=== PATIENT | male | born 1950 | race Two or more races ===

== ENCOUNTER 2016-07-26 17:41 | Emergency (ER) | payer BC ==
[2016-07-26 17:53] VITALS: BP 145/80
[2016-07-26] MEDS ORDERED: Fluorescein Sodium TOPICAL* 1 MG TEST ONE (18:38)
[2016-07-26] MEDS ORDERED: BSS OPTH.SOL* BTL ONE (18:38)
[2016-07-26] MEDS ORDERED: Proparacaine 0.5% OPHTH.SOL* 15 ML BTL ONE (18:38)
[2016-07-26] MEDS ORDERED: Tobramycin 0.3% OPHTH.SOL* 5 ML BOT (regular eye drops) LEFT EYE ONE ×2 (19:12→19:14)
--- NOTE | 2016-07-27 00:08 | UC ---
Nanette Collado Erika, scribed for Tamia Baldwin MD on 07/26/16 at 1845 . Eye Complaint HPI - HPI Summary HPI Summary: Patient is a 66-year-old male presenting to [facility] with a CC of left eye pain s/p injury. Pt reports that at 15:30, he pushed back some branches, and a branch whipped back and hit his eye. He states eye was instantly painful and he instantly had blurred vision. He also saw a "streaky halo when looking at bright lights" in his visual field - pt reports that this somewhat reminds him of his cataracts. He further describes this as a "little refraction down toward the lower left of the visual field." Associated symptoms include photophobia. Pt denies bleeding from the eye. Pt then took a nap, and then came to [facility]. Hx cataracts surgery in 2013 in the affected eye. FHx glaucoma. Pt believes he is UTD on tetanus. - History of Current Complaint Chief Complaint: UCEye Stated Complaint: EYE COMPLAINT Time Seen by Provider: 07/26/16 18:35 Hx Obtained From: Patient Onset/Duration: Sudden Onset, Lasting Hours, Still Present Timing: Constant Severity Currently: Moderate Pain Intensity: 6 Pain Scale Used: 0-10 Numeric Character: Sharp Aggravating Factor(s): Light Associated Signs And Symptoms: Positive: Photophobia, Vision Impairment Left - Allergies/Home Medications Allergies/Adverse Reactions: Allergies Allergy/AdvReac Type Severity Reaction Status Date / Time Penicillins [PCN] Allergy Hives Verified 07/25/15 12:28 PMH/Surg Hx/FS Hx/Imm Hx Endocrine History Of: Denies: Diabetes, Thyroid Disease Cardiovascular History Of: Denies: Cardiac Disorders, Hypertension Respiratory History Of: Denies: COPD, Asthma GI/ History Of: Denies: Ulcer - Surgical History Surgical History: Yes Surgery Procedure, Year, and Place: 2013 [place]YE [place] [facility] [facility] [place] [facility] [place] [place] RIGHT KNEE PATELLA REPAIR, BILL (45 YEARS AGO). RIGHT INGUINAL HERNIA REPAIR , BILL - Family History Known Family History: Positive: Other - glaucoma - Social History Lives: With Family Alcohol Use: Daily Alcohol Amount: 1 beer, 1 wine (NO MORE THAN 2) Substance Use Type: None Smoking Status (MU): Never Smoked Tobacco Have You Smoked in the Last Year: No - Immunization History Most Recent Influenza Vaccination: Most Recent Tetanus Shot: In the last 10 years Review of Systems Constitutional: Negative Eyes: Blurred Vision - left, Photophobia - left, Other - Streak in vision All Other Systems Reviewed And Are Negative: Yes Physical Exam Triage Information Reviewed: Yes Appearance: Well-Appearing, Well-Nourished, Pain Distress - mild Vital Signs: Initial Vital Signs Temp 97.1 F 07/26/16 17:47 Pulse 75 07/26/16 17:47 Resp 16 07/26/16 17:47 BP 145/80 07/26/16 17:47 Pulse Ox 100 07/26/16 17:47 Vital Signs Reviewed: Yes Eye Exam: Other - See procedure note ENT: Positive: Normal ENT inspection Neck: Positive: Supple Respiratory: Positive: No respiratory distress Cardiovascular: Positive: RRR, Pulses Normal, Brisk Capillary Refill Musculoskeletal: Positive: Strength Intact, ROM Intact Neurological: Positive: Alert, Muscle Tone Normal Psychological Exam: Normal Skin Exam: Normal Procedures - Procedure Summary Procedure Summary: Proparacaine drops and fluorescein stain administered to the left eye. Patient reports pain immediately decreased to a 0/10 following administration of the proparacaine. Used Wood's Lamp to view left eye. 2 mm corneal abrasion visualized from 1 o'clock towards 7 o'clock. Negative hyphema. CRISPIN. Re-Evaluation - Re-Evaluation First Eval Re-Evaluation Time: 19:23 Comment: Discussed Dr. Ward's recommendations and follow up care Eye Complaint Course/Dx - Differential Dx/Diagnosis Differential Diagnosis/HQI/PQRI: Corneal Abrasion, Detached Retina, Glaucoma, Penetrating Injury Provider Diagnoses: 1. Corneal abrasion - Physician Notification/Consults Discussed Patient Care With: Called out to Dr. Ward (ophthalmology) at 19: 00. Return call from Dr. Ward at 19:08 - discussed history and plan of care. Will see patient at 09:00 tomorrow in the office. Recommends tobramycin and eye rest. Instructed by Provider To: Other - will see in office at 0900 tomorrow. Discharge - Discharge Plan Condition: Stable Disposition: HOME Patient Education Materials: Corneal Abrasion (ED) Referrals: Leslie Newell MD [Primary Care Provider] - Justice Ward MD [Medical Doctor] - Additional Instructions: You have a follow up appointment at 9:00 am tomorrow at [facility]. Rest the eye. RETURN TO URGENT CARE FOR ANY NEW OR WORSENING SYMPTOMS. The documentation as recorded by the Nanette hunt Erika accurately reflects the service I personally performed and the decisions made by me, Tamia Baldwin MD.
== END 2016-07-26 19:46 | disposition home or self-care (01) ==
LOC: UCEAST 17:41
DX: S05.02XA Injury of conjunctiva and corneal abrasion without foreign body, left eye, initial encounter (principal); W22.8XXA Striking against or struck by other objects, initial encounter; Y93.89 Activity, other specified; Y92.9 Unspecified place or not applicable; Z88.0 Allergy status to penicillin
CPT/HCPCS: 99213; A9270-GY; G0463

== ENCOUNTER 2017-07-08 19:58 | Emergency (ER) | payer BC ==
[2017-07-08 20:08] VITALS: BP 131/75
--- NOTE | 2017-07-08 20:45 | RAD ---
INDICATION: Left wrist injury. TECHNIQUE: 3 views of the left wrist were obtained. FINDINGS: There is mild soft tissue swelling. The bones are normal alignment. No fracture is seen. There is widening of the scapholunate joint space suggestive of a scapholunate ligament tear. There are lucent areas in the scaphoid and navicular bone suggestive of erosions or subchondral cystic change. IMPRESSION: 1. SOFT TISSUE SWELLING, NO FRACTURE IS SEEN. 2. FINDINGS SUGGESTIVE OF A SCAPHOLUNATE LIGAMENT TEAR. THIS COULD CAN BE FURTHER EVALUATED WITH AN MRI OF THE WRIST.
--- NOTE | 2017-07-08 21:00 | ED ---
Upper Extremity Pain - HPI Summary HPI Summary: 66 YO M C/O LEFT WRIST PAIN. FOOSH TODAY WHILE ICE SKATING. INITIAL PAIN MINIMAL. AFTER SPLITTING WOOD AND OPENING CHESTNUTS, PAIN GOT MUCH WORSE. - History of Current Complaint Chief Complaint: UCUpperExtremity Stated Complaint: WRIST INJURY Time Seen by Provider: 07/08/17 20:32 - Allergies/Home Medications Allergies/Adverse Reactions: Allergies Allergy/AdvReac Type Severity Reaction Status Date / Time Penicillins [PCN] Allergy Hives Verified 07/25/15 12:28 PMH/Surg Hx/FS Hx/Imm Hx Previously Healthy: Yes Endocrine/Hematology History: Denies: Hx Diabetes, Hx Thyroid Disease Cardiovascular History: Reports: Hx Angina Denies: Hx Coronary Artery Disease, Hx Hypercholesterolemia, Hx Hypertension , Hx Myocardial Infarction, Hx Valvular Heart Disease Respiratory History: Denies: Hx Asthma, Hx Chronic Obstructive Pulmonary Disease (COPD) GI History: Denies: Hx Ulcer Musculoskeletal History: Reports: Hx Tendonitis - HX OF ELBOWS Sensory History: Reports: Hx Cataracts - HX OF BILATERAL, Hx Contacts or Glasses - GLASSES Denies: Hx Hearing Aid Opthamlomology History: Reports: Hx Cataracts - HX OF BILATERAL, Hx Contacts or Glasses - GLASSES - Surgical History Surgery Procedure, Year, and Place: 2013 LEFT EYE CATARACT [place]TRA[place] [facility] [place] IM[place]ANTS[place] [facility] [place] RIGHT KNEE PATELLA REPAIR, STRONG (45 YEARS AGO). RIGHT INGUINAL HERNIA REPAIR , STRONG Hx Anesthesia Reactions: No Infectious Disease History: No Infectious Disease History: Reports: Traveled Outside the [place] in Last 30 Days - [place] Denies: Hx Clostridium Difficile, Hx Hepatitis, Hx Human Immunodeficiency Virus (HIV), Hx of Known/Suspected MRSA, Hx Shingles, Hx Tuberculosis, Hx Known/ Suspected VRE, Hx Known/Suspected VRSA, History Other Infectious Disease - Family History Known Family History: Positive: Other - glaucoma - Social History Alcohol Use: Daily Alcohol Amount: 1 beer, 1 wine (NO MORE THAN 2) Substance Use Type: Reports: None Smoking Status (MU): Never Smoked Tobacco Have You Smoked in the Last Year: No Review of Systems Constitutional: Negative Eyes: Negative ENT: Negative Cardiovascular: Negative Respiratory: Negative Gastrointestinal: Negative Positive: no symptoms reported Positive: Other - SE HPI Skin: Negative Neurological: Negative Psychological: Normal All Other Systems Reviewed And Are Negative: Yes Physical Exam Triage Information Reviewed: Yes Vital Signs On Initial Exam: Initial Vitals Temp Pulse Resp BP Pulse Ox 98 F 76 16 131/75 98 07/08/17 19:58 07/08/17 19:58 07/08/17 19:58 07/08/17 19:58 07/08/17 19:58 Vital Signs Reviewed: Yes Appearance: Positive: Well-Appearing Skin: Positive: Warm, Skin Color Reflects Adequate Perfusion Eyes: Positive: Normal, EOMI, CRISPIN Neck: Positive: Supple Musculoskeletal: Positive: Other - LEFT WRIST PAINFUL/SWOLLEN. PAIN WITH ROM. NL CAP REFILL. Neurological: Positive: Normal, Sensory/Motor Intact Psychiatric: Positive: Normal AVPU Assessment: Alert Diagnostics - Vital Signs Vital Signs Temp Pulse Resp BP Pulse Ox 07/08/17 19:58 98 F 76 16 131/75 98 - Laboratory Lab Statement: Any lab studies that have been ordered have been reviewed, and results considered in the medical decision making process. Course/Dx - Diagnoses Provider Diagnoses: Left wrist sprain, Ligament tear Discharge - Discharge Plan Condition: Stable Disposition: HOME Patient Education Materials: Wrist Sprain (ED) Referrals: Leslie Newell MD [Primary Care Provider] - Additional Instructions: FOLLOW UP WITH YOUR PRIMARY CARE DOCTOR AND ORTHOPEDICS FOR YOUR PROBABLE WRIST LIGAMENT TEAR. GET RECHECKED FOR ANY WORSENING OF YOUR CONDITION OR QUESTIONS OR CONCERNS.
== END 2017-07-08 21:10 | disposition home or self-care (01) ==
LOC: UCEAST 19:58
DX: S63.502A Unspecified sprain of left wrist, initial encounter (principal); Z88.0 Allergy status to penicillin; W00.9XXA Unspecified fall due to ice and snow, initial encounter; Y93.21 Activity, ice skating; Y92.9 Unspecified place or not applicable
CPT/HCPCS: 99212; G0463

== ENCOUNTER 2018-03-23 12:29 | Emergency (ER) | payer BC ==
--- NOTE | 2018-03-23 12:58 | ED ---
HPI Chest Pain - HPI Summary HPI Summary: This patient is a 67 year old M presenting to [facility] with a chief complaint of chest discomfort since 1.5 hours ago. It began when he jumped into a narayan to grab some grapevines. The patient rates the pain 4/10 in severity. Patient reports light headed dizziness, palpitations, and fatigue. Patient denies dyspnea, diaphoresis, and nausea. He reports having been very stressed out by his job the last few days. No PMHx of [place] or blood clots. He was given a stress test last year and it was concluded that his heart was in good shape. He takes baby aspirin daily. - History of Current Complaint Chief Complaint: EDChestPainROMI Time Seen by Provider: 03/23/18 12:37 Hx Obtained From: Patient Onset/Duration: Started Hours Ago - 1.5 hours ago, Still Present Timing: Constant Initial Severity: Moderate Current Severity: Moderate Pain Intensity: 4 Pain Scale Used: 0-10 Numeric Associated Signs and Symptoms: Positive: Dizziness, Palpitations, Other: - Fatigue. Denies dyspnea, diaphoresis. Negative: Nausea - Allergy/Home Medications Allergies/Adverse Reactions: Allergies Allergy/AdvReac Type Severity Reaction Status Date / Time Penicillins Allergy Severe Hives Verified 03/23/18 12:35 Home Medications: Home Medications Aspirin EC TAB* [Ecotrin EC Low Dose 81 MG*] 81 mg PO DAILY 03/23/18 [History Confirmed 03/23/18] PMH/Surg Hx/FS Hx/Imm Hx Endocrine/Hematology History: Denies: Hx Diabetes, Hx Thyroid Disease Cardiovascular History: Reports: Hx Angina Denies: Hx Coronary Artery Disease, Hx Hypercholesterolemia, Hx Hypertension , Hx Myocardial Infarction, Hx Valvular Heart Disease Respiratory History: Denies: Hx Asthma, Hx Chronic Obstructive Pulmonary Disease (COPD) GI History: Denies: Hx Ulcer Musculoskeletal History: Reports: Hx Tendonitis - HX OF ELBOWS Sensory History: Reports: Hx Cataracts - HX OF BILATERAL, Hx Contacts or Glasses - GLASSES Denies: Hx Hearing Aid Opthamlomology History: Reports: Hx Cataracts - HX OF BILATERAL, Hx Contacts or Glasses - GLASSES - Surgical History Surgery Procedure, Year, and Place: 2013 LEFT EYE CATARACT EXTRACTION WITH IOL IMPLANTS, [facility] [place]. [place] RIGHT EYE CATARACT EXTRACTION WITH IOL IMPLANTS, [facility] [place]. RIGHT KNEE PATELLA REPAIR, STRONG (45 YEARS AGO). RIGHT INGUINAL HERNIA REPAIR , STRONG Hx Anesthesia Reactions: No Infectious Disease History: No Infectious Disease History: Denies: Hx Clostridium Difficile, Hx Hepatitis, Hx Human Immunodeficiency Virus (HIV), Hx of Known/Suspected MRSA, Hx Shingles, Hx Tuberculosis, Hx Known/ Suspected VRE, Hx Known/Suspected VRSA, History Other Infectious Disease, Traveled Outside the [place] in Last 30 Days - Family History Known Family History: Positive: Other - glaucoma - Social History Occupation: Employed Full-time - Self-employed Lives: With Family Alcohol Use: Daily Alcohol Amount: 1 beer, 1 wine (NO MORE THAN 2) Substance Use Type: Reports: None Smoking Status (MU): Never Smoked Tobacco Have You Smoked in the Last Year: No Review of Systems Positive: Fatigue, Skin Diaphoresis, Other - D Positive: Palpitations, Chest Pain Negative: Other - Denies dyspnea Positive: Nausea All Other Systems Reviewed And Are Negative: Yes Physical Exam - Summary Physical Exam Summary: GENERAL: Patient is a well-developed and nourished M who is lying comfortable in the stretcher. Patient is not in any acute respiratory distress. HEAD AND FACE: Normocephalic EYES: PERRLA, EOMI x 2. EARS: Hearing grossly intact. MOUTH: Oropharynx within normal limits. NECK: Supple, trachea is midline, no adenopathy, no JVD, no carotid bruit. CHEST: Symmetric, no tenderness at palpation LUNGS: Clear to auscultation bilaterally. No wheezing or crackles. CVS: Regular rate and rhythm, S1 and S2 present, no murmurs or gallops appreciated. ABDOMEN: Soft, non-tender. Bowel sounds are normal. No abdominal abnormal pulsations. EXTREMITIES: Full ROM in all major joints, no edema, no cyanosis or clubbing. NEURO: Alert and oriented x 3. No acute neurological deficits. Speech is normal and follows commands. SKIN: Dry and warm Triage Information Reviewed: Yes Vital Signs On Initial Exam: Initial Vitals Temp Pulse Resp BP Pulse Ox 98.6 F 77 16 137/78 100 03/23/18 12:31 03/23/18 12:31 03/23/18 12:31 03/23/18 12:31 03/23/18 12:31 Vital Signs Reviewed: Yes Diagnostics - Vital Signs Vital Signs Temp Pulse Resp BP Pulse Ox 03/23/18 12:31 98.6 F 77 16 137/78 100 - Laboratory Result Diagrams: 03/23/18 12:59 03/23/18 12:59 Lab Statement: Any lab studies that have been ordered have been reviewed, and results considered in the medical decision making process. - Radiology Chest X-Ray Radiology Interpretation Completed By: Radiologist - 13:35. NO EVIDENCE FOR ACUTE DISEASE. ED Physician has reviewed this imaging report. - EKG 12:38 Cardiac Rate: NL - 66 BPM EKG Rhythm: Sinus Rhythm ST Segment: Normal EKG Interpretation: Normal interval. Normal axis Re-Evaluation - Re-Evaluation 1 Re-Evaluation Time: 14:35 Change: Improved Comment: Patient is feeling better. He believes that his symptoms are stress related and requests to go home. I informed him of his negative troponin test and I encouraged him to stay for another troponin test at 15:30. Patient agreed. Chest Pain Course/Dx - Course Assessment/Plan: This patient is a 67 year old M [place] [facility] [place] with a chief complaint of chest discomfort since 1.5 hours ago. The troponin tests were both negative. The chest x-ray was negative. He has a low risk by heart score. I offered him admission into [facility] [place], but he believes that his CP is related to his stress from work. He declined admission and requested to go home. I referred him to ssas developer, Dr. Mott. I discussed results with patient and he agrees with this plan. He is hemodynamically stable upon discharge. Strict return precautions given and he will otherwise follow up with his PCP. - Diagnoses Provider Diagnoses: Chest pain Discharge - Sign-Out/Discharge Documenting (check all that apply): Patient Departure - D/C - Discharge Plan Condition: Stable Disposition: HOME Patient Education Materials: Chest Pain (ED) Referrals: Leslie Newell MD [Primary Care Provider] - 3 Days Justus Mott MD [Medical Doctor] - 1 Day Additional Instructions: Follow up with ssas developer, Dr. Mott, in 1 day. Follow up with your primary care physician in 1-3 days. RETURN TO THE EMERGENCY DEPARTMENT FOR CHANGING OR WORSENING SYMPTOMS - Attestation Statements Document Initiated by Scribe: Yes Documenting Scribe: Trey Buchanan Provider For Whom Scribe is Documenting (Include Credential): Taj Carlson MD Scribe Attestation: Trey Collado, scribed for Taj Carlson MD on 03/23/18 at 1642.
[2018-03-23] MEDS ORDERED: Nitroglycerin TAB 0.4 MG* 0.4 MG TAB SL ONE (13:02)
[2018-03-23] MEDS ORDERED: Aspirin 81 mg CHEW TAB* 81 MG TAB.CHEW PO ONE (13:02)
[2018-03-23 13:10] LABS: ABS Basophils 0 10^3/ul (0-0.2); ABS Eosinophils 0 10^3/ul (0-0.6); ABS Monocytes 0.4 10^3/ul (0-0.8); ABS Neutrophils 2.6 10^3/ul (1.5-7.7); ABS Nucleated RBC 0 10^3/ul; Eosinophil % 0.8 % (0-6); Hematocrit 43 % (42-52); Hemoglobin 14.7 g/dl (14.0-18.0); Mean Corpuscular HGB Conc 34 g/dl (31-36); Mean Corpuscular Hemoglobin 31 pg (27-31); Mean Corpuscular Volume 92 fL (80-94); Mean Platelet Volume 8.9 um3 (7.4-10.4); Nucleated Red Blood Cells % 0.1; Platelet Count 207 10^3/ul (150-450); Red Blood Count 4.71 10^6/ul (4.00-5.40); Red Cell Distribution Width 13 % (10.5-15)
[2018-03-23 13:33] LABS: EGFR Non-African American 70.2 (>60)
--- NOTE | 2018-03-23 13:38 | RAD ---
INDICATION: Chest pain. COMPARISON: Comparison is made with a prior x-ray study of the chest from May 05, 2011. TECHNIQUE: A portable view of the chest was obtained. FINDINGS: Cardiac and mediastinal contours appear to be within normal limits. The lungs are clear. No pleural effusion or pneumothorax is seen. IMPRESSION: NO EVIDENCE FOR ACUTE DISEASE.
[2018-03-23 13:43] LABS: Urine Appearance Clear; Urine Blood Negative (Negative); Urine Color Amber; Urine Ketones Trace (Negative); Urine Protein Negative (Negative); Urine Specific Gravity 1.025 (1.010-1.030); Urine Urobilinogen Positive (Negative)
[2018-03-23 16:27] VITALS: BP 110/63
== END 2018-03-23 16:27 | disposition home or self-care (01) ==
LOC: ED 12:29
DX: R07.9 Chest pain, unspecified (principal); R42 Dizziness and giddiness; R00.2 Palpitations; R53.83 Other fatigue
CPT/HCPCS: 36415; 71045; 80053; 81003; 83605; 83880; 84436; 84443; 84484; 85025; 85730; 93005; 99283; A9270-GY